=== PATIENT | female | born 1970 | race Caucasian/White ===

== ENCOUNTER 2017-06-28 20:29 | Emergency (ER) | payer SELFPAY ==
[2017-06-28 20:51] VITALS: BP 121/76
--- NOTE | 2017-06-28 22:10 | ED ---
Head Injury - HPI Summary HPI Summary: 46 female presents to ED with complaints of blunt trauma to the top of her head that occurred around 8pm today. Patient states she was trying to open a curtain when the heavy wooden bill, ~10 feet up, snapped and struck patient on the top of her head "like a baseball hat". States she instantly fell to the ground, had black vision and seeing stars. Patient states it was a very loud noise and very painful. Described headache to be shooting sharp pain and very localized to area that trauma occurred. The black/starry vision lasted a few minutes. Patient denies photosensitivity and tinnitus currently. Admits to nausea and feeling "out of it". Denies vomiting and LOC. No visual changes currently. No weakness. No anticoagulant use. No PMHx. Has not taken any medication. Admits to bump on head. No memory loss or confusion - History Of Current Complaint Chief Complaint: EDHeadInjury Stated Complaint: HEAD INJURY Time Seen by Provider: 06/28/17 21:11 Hx Obtained From: Patient Mechanism Of Injury: Direct Blow Onset/Duration: Started Hours Ago - 8pm, Traumatic, Still Present Onset of Pain: Immediate, Post Accident Severity Currently: Severe Severity Initially: Moderate Pain Intensity: 6 Pain Scale Used: 0-10 Numeric Location of Head Injury: Parietal Location: Discrete At: - top of head Character: Sharp - shooting, Throbbing, Aching Aggravating Factor(s): Other: - nothing Alleviating Factor(s): Other: - nothing Associated Signs And Symptoms: Nausea, Swelling - hematoma, top of head, Headache, Visual Changes - resolved - Allergies/Home Medications Allergies/Adverse Reactions: Allergies Allergy/AdvReac Type Severity Reaction Status Date / Time Latex Allergy Mild Rash Verified 09/15/12 08:24 bandaids Allergy Mild Rash Uncoded 09/15/12 08:25 PMH/Surg Hx/FS Hx/Imm Hx Endocrine/Hematology History: Denies: Hx Anticoagulant Therapy, Hx Diabetes Cardiovascular History: Denies: Hx Hypertension Respiratory History: Denies: Hx Asthma - Cancer History Hx Chemotherapy: No Hx Radiation Therapy: No - Surgical History Surgery Procedure, Year, and Place: n/a - Immunization History Immunizations Up to Date: Yes Infectious Disease History: No Infectious Disease History: Denies: Traveled Outside the [place] in Last 30 Days - Family History Known Family History: Positive: None - Social History Alcohol Use: Occasionally Substance Use Type: Reports: None Smoking Status (MU): Never Smoked Tobacco Review of Systems Constitutional: Negative Positive: Blurred Vision - seeing black/stars however resolved Cardiovascular: Negative Respiratory: Negative Positive: Nausea Positive: Other - hematoma top of head Positive: Headache All Other Systems Reviewed And Are Negative: Yes Physical Exam Triage Information Reviewed: Yes Vital Signs On Initial Exam: Initial Vitals Temp Pulse Resp BP Pulse Ox 98.7 F 67 16 121/76 99 06/28/17 20:46 06/28/17 20:46 06/28/17 20:46 06/28/17 20:46 06/28/17 20:46 Vital Signs Reviewed: Yes Appearance: Positive: Well-Appearing, Well-Nourished, Pain Distress - mild, ice applied to head Skin: Positive: Warm, Skin Color Reflects Adequate Perfusion, Dry. Negative: Cold, Cyanosis @, Pale, Cold Injury Head/Face: Positive: Normal Head/Face Inspection, Scalp - quarter sized hematoma to top right parital area of scalp noted, no lacerations Eyes: Positive: EOMI, MISSY, Conjunctiva Clear, Other: - normal visual acuity ENT: Positive: Normal ENT inspection, Hearing grossly normal, Pharynx normal, TMs normal Neck: Positive: Supple, Nontender Respiratory/Lung Sounds: Positive: Clear to Auscultation, Breath Sounds Present. Negative: Rales, Rhonchi, Wheezes Cardiovascular: Positive: Normal, RRR, Pulses are Symmetrical in both Upper and Lower Extremities. Negative: Murmur, Rub Abdomen Description: Positive: Nontender, Soft Bowel Sounds: Positive: Present Musculoskeletal: Positive: Normal, Strength/ROM Intact. Negative: Limited @, Interruption @, Pain @ Neurological: Positive: Normal - memory and concentration intact, normal neuro exam, Sensory/Motor Intact, Alert, Oriented to Person Place, Time, CN Intact II- III, Reflexes Intact, NV Bundle Intact Distally, Normal Gait, Heel to Toe - normal, Finger to Nose - normal, Facial Symmetry, Speech Normal. Negative: Slurred Speech - [place] Coma Scale Best Eye Response: 4 - Spontaneous Best Motor Response: 6 - Obeys Commands Best Verbal Response: 5 - Oriented Coma Scale Total: 15 Diagnostics - Vital Signs Vital Signs Temp Pulse Resp BP Pulse Ox 06/28/17 20:46 98.7 F 67 16 121/76 99 - Laboratory Lab Statement: Any lab studies that have been ordered have been reviewed, and results considered in the medical decision making process. - CT brain CT Interpretation: No Acute Changes - no acute brain findings CT Interpretation Completed By: Radiologist - and myself Re-Evaluation - Re-Evaluation First Eval Re-Evaluation Time: 23:26 Change: Improved - patient updated on imaging results, ready to dc Head Injury Course/Dx Course Of Treatment: CT brain obtained and negative. appears to be suffering from concussion due to NADIR and symptoms. Normal PE and neuro exam other. Previous neuro/symptoms resolved shortly after trauma. increase fluid intake. rest, avoid high concentrating light stimulating activities. Ibuprofen/tylenol for headache. Ice for hematoma. Aware of worsening signs and symptoms to watch out for. Follow up with PCP for recheck after 1 week. Avoid strenuous physical activity. all question answered. patient agrees and understands plan. - Diagnoses Differential Diagnosis/HQI/PQRI: Concussion Without LOC, Contusion, Hematoma Provider Diagnoses: Concussion without loss of consciousness, Hematoma of scalp Discharge - Discharge Plan Condition: Stable Disposition: HOME Patient Education Materials: Concussion (ED), Hematoma (ED) Referrals: Basil Reyna MD [Primary Care Provider] - Additional Instructions: Increase fluid intake. Ibuprofen/tylenol for headache. Ice to bump of head. Rest and avoid physical activity, light stimulating and high concentrating activities. Follow up with PCP and be re-evaluated within 1 week to ensure improvement. Any new or worsening symptoms, as discussed, please seek medical attention promptly.
[2017-06-28] MEDS ORDERED: Ibuprofen TAB* 600 MG PO ONE (23:25)
--- NOTE | 2017-06-29 07:32 | RAD ---
INDICATION: Pain on top of head following injury from wooden bill COMPARISON: None TECHNIQUE: Noncontrast axial source images were acquired from the skull base to the vertex. FINDINGS: Ventricles/sulci: The ventricles and cisterns are normal in size and configuration for age. Brain parenchyma: There is no focal parenchymal finding, evidence of intracranial mass, or intracranial mass effect. Intracranial hemorrhage:None. Extra-axial spaces: There are no abnormal extra axial fluid collections or evidence of extra-axial mass. Calvarium: There is no calvarial fracture or other calvarial abnormality. Scalp: There is no evidence of scalp or extracalvarial soft tissue abnormality. Paranasal sinuses/mastoid: The paranasal sinuses and mastoid air cells are clear. Other: None. IMPRESSION: NEGATIVE EXAMINATION
== END 2017-06-29 00:24 | disposition home or self-care (01) ==
LOC: ED 20:29
DX: S06.0X0A Concussion without loss of consciousness, initial encounter (principal); S00.03XA Contusion of scalp, initial encounter; R11.0 Nausea; R51 Headache; W22.8XXA Striking against or struck by other objects, initial encounter; Y92.9 Unspecified place or not applicable
CPT/HCPCS: 70450; 99282